=== PATIENT | female | born 1955 | race Caucasian/White ===

== ENCOUNTER → 2019-10-10 14:13 | Outpatient (CLI) | payer MEDICARE, MEDICAID, SELFPAY ==
[2019-10-10 14:58] LABS: Basophils # 0.1 K/mm3 (0-0.2); Basophils % 0.8 % (0.1-2.0); Eosinophils # 0.3 K/mm3 (0.0-0.4); Hematocrit 47.1 % (37.0-47.0); Hemoglobin 15.4 g/dL (12.2-16.2); Lymphocytes # 2.2 K/mm3 (0.7-4.5); Mean Corpuscular HGB Conc 32.6 g/dL (31.8-35.4); Mean Corpuscular Hemoglobin 29.2 pg (27.0-31.2); Mean Corpuscular Volume 89.4 fl (81-99); Mean Platelet Volume 8.1 fl (7.4-10.4); Monocytes # 0.6 K/mm3 (0.1-1.0); Monocytes % 6.5 % (1.7-9.3); Neutrophils # 6.7 K/mm3 (1.8-7.8); Neutrophils % 67.8 % (37.0-80.0); Platelet Count 240 K/mm3 (142-424); Red Blood Count 5.27 M/mm3 (4.20-5.40); Red Cell Distribution Width 14.9 % (11.5-17.5); White Blood Count 9.8 K/mm3 (4.8-10.8)
[2019-10-10 15:55] LABS: Alanine Aminotransferase 19 U/L (12-78); Albumin Level 3.7 gm/dL (3.4-5.0); Albumin/Globulin Ratio 1.2 (1.1-1.8); Alkaline Phosphatase 79 U/L (46-116); Aspartate Amino Transferase 14 U/L (15-37); Bilirubin,Total 0.3 mg/dL (0.2-1.0); Blood Urea Nitrogen 10 mg/dL (7-18); Carbon Dioxide 29 mmol/L (21.0-32.0); Chloride 102 mmol/L (98-107); Creatinine,Serum 0.96 mg/dL (0.55-1.02); Estimated Glomerular Filt Rate 58 ml/min (>60); GFR (African American) 70 ML/MIN (>60); Globulin 3.1 gm/dl (1.3-3.2); Glucose 109 mg/dL (74-106); Sodium 140 mmol/L (136-145); Total Protein,Serum 6.8 gm/dL (6.4-8.2)
== END ==
PROVIDERS: Visit Provider Urology
DX: N20.0 Calculus of kidney (principal)
CPT/HCPCS: 36415; 80053; 85025

== ENCOUNTER → 2019-10-27 15:17 | Outpatient (CLI) | payer MEDICARE, MEDICAID, SELFPAY ==
--- NOTE | 2019-10-27 15:24 | XR_ITS ---
PROCEDURE: XR KUB CLINICAL INDICATION: post op lithotripsy COMPARISON: No exams were available for comparison FINDINGS: Gas pattern-The bowel gas pattern is unremarkable. No obvious obstruction. Calcifications-multiple bilateral calcifications project over the renal beds. A double pigtail left urinary stent is in place and a 7 millimeter calcification projects in the region of the left renal pelvis over the stent. Pelvic calcifications likely phleboliths are noted but there are calcifications in the pelvis bilaterally projecting along the anticipated course of the distal ureters.. There is a nonspecific gas pattern. No abnormal calcifications are evident. No obvious renal or ureteral calculi. Bones-No acute bony anomalies evident. IMPRESSION: Left urinary stent in place with bilateral non-obstructing intra renal stones and 7 millimeter calcification in the region of the left ureteropelvic junction. Dictated by: Derek Johnson 10/27/2019 15:37 Electronically signed by Derek Johnson in [place] 10/27/2019 15:37
== END ==
PROVIDERS: Visit Provider Urology
DX: N20.0 Calculus of kidney (principal)
CPT/HCPCS: 74018

== ENCOUNTER → 2019-11-11 14:24 | Outpatient (CLI) | payer MEDICARE, MEDICAID, SELFPAY ==
--- NOTE | 2019-11-11 14:30 | XR_ITS ---
PROCEDURE: XR KUB CLINICAL INDICATION: kidney stone Follow-up kidney stones, flank pain COMPARISON: XR KUB from 10/27/2019 FINDINGS: The left ureteral stent has been removed. There are small bilateral renal calculi noted. There is a 7 mm stone in the region of the proximal left ureter just to the left of the L3 vertebral body. IMPRESSION: Bilateral nephrolithiasis with proximal 7 mm left ureteral stone Dictated by: Red Erwin MD 11/11/2019 18:12 Electronically signed by Red Erwin MD in [place] 11/11/2019 18:12
[2019-12-12 18:14] LABS: Specimen Type NOT PROVIDED
[2019-12-12 18:17] LABS: Photo TO FOLLOW
== END ==
PROVIDERS: Visit Provider Urology
DX: N20.0 Calculus of kidney (principal)
CPT/HCPCS: 74018; 82370

== ENCOUNTER → 2019-11-11 15:57 | Outpatient (CLI) | payer MEDICARE, MEDICAID, SELFPAY | PROVIDERS: Visit Provider Urology | DX: N20.0 Calculus of kidney (principal) | CPT/HCPCS: 74018; 82370 ==